=== PATIENT | male | born 1975 | race Caucasian/White ===

== ENCOUNTER 2018-01-09 07:35 | Outpatient (CLI) | payer OTHER ==
--- NOTE | 2018-01-09 09:08 | RAD ---
FOUR VIEWS LUMBAR SPINE: History: Lumbar radiculopathy. M54.16 Date: 01-09-18 Comparison: None available. FINDINGS: AP, lateral, and flexion extension views of the lumbar spine obtained and demonstrate grade 3 anterol isthesis of L5 on S1. This does not significantly change on flexion or extension views. Findings comp atible with marked spondylolysis of the pars intraarticularis of L5. The rest of the lumbar spine dem onstrates no definite abnormalities. A large amount of stool is seen in the colon. IMPRESSION: Grade 3 anterolisthesis of L5 on S1. POS: [facility]
--- NOTE | 2018-01-09 09:36 | MRI ---
MRI LUMBAR SPINE WITHOUT CONTRAST: Technique: Multiplanar, multisequence MRI images were obtained of the lumbar spine following lumbar p rotocol without contrast. Indication: Low back pain. Lumbar radiculopathy of lower extremities. Correlation: Plain films lumbar spine. FINDINGS: Lumbar vertebra through L4 maintain normal height and alignment. Disc spaces are maintained through L 4-5. At L5-S1 there is a grade 1-2 spondylolisthesis with loss of L5-S1 disc space. Mild loss of post erior height of the L5 vertebra. Mild edema within the L4 vertebra. There is a posterior spondylolysi s at L5-S1. L1-2: No significant disc bulge. There is facet arthrosis hypertrophy without significant central can al or foraminal stenosis. L2-3: No significant disc bulge. Mild facet arthrosis and hypertrophy. Posterior epidural fat. Mild c entral canal stenosis. L3-4: Mild diffuse disc bulge. Mild facet arthrosis and hypertrophy. No significant central canal or foraminal stenosis. L4-5: Broad based disc bulge with small central disc protrusion. Facet and ligamentous hypertrophy. M ild central canal stenosis and mild bilateral foraminal stenosis. L5-S1: Spondylolisthesis with posterior spondylosis and loss of disc space as described above. Mild d isc bulge. Prominent facet and ligamentous hypertrophy. Severe central canal stenosis and severe bila teral foraminal stenosis. IMPRESSION: Abnormalities at L4-5 and L5-S1 as described above. POS: [facility] [place]
== END 2018-01-09 07:36 | disposition home or self-care (01) ==
LOC: TBSIIMAG 07:35
PROVIDERS: ATTEND Neurological Surgery
DX: M51.16 Intervertebral disc disorders with radiculopathy, lumbar region (principal); M43.17 Spondylolisthesis, lumbosacral region; M48.061 Spinal stenosis, lumbar region without neurogenic claudication; M99.83 Other biomechanical lesions of lumbar region; M47.897 Other spondylosis, lumbosacral region; M48.07 Spinal stenosis, lumbosacral region; M99.84 Other biomechanical lesions of sacral region
CPT/HCPCS: 72110; 72148

== ENCOUNTER 2018-03-04 06:49 | Observation (INO) | payer OTHER ==
[2018-03-04] MEDS ORDERED: CEFAZOLIN 2 GM/50 ML BAG ONE (07:46)
[2018-03-04] MEDS ORDERED: Sodium Chloride 0.9% 10 ML ONE (08:32)
[2018-03-04 08:36] LABS: Hemoglobin 13.1 g/dL (14.0-18.0); Mean Corpuscular HGB CONC 32.7 g/dL (32.0-36.0); Mean Corpuscular Hemoglobin 28.8 pg (27.0-31.0); Mean Corpuscular Volume 87.9 fL (78.0-98.0); Mean Platelet Volume 7.8 fL (7.4-10.4); Platelet Count 276 thou/uL (130-400); RBC Distribution Width 11.7 % (11.5-14.5); Red Blood Cell (RBC) Count 4.56 mill/uL (4.70-6.10)
[2018-03-04] MEDS ORDERED: Fentanyl 100 MCG/2 ML VIAL ONE ×4 (08:37→10:56)
[2018-03-04] MEDS ORDERED: Midazolam HCl 2 mg/2 ml Vial ONE ×2 (08:37→08:43)
[2018-03-04] MEDS ORDERED: Levofloxacin 500 mg/D5W 100 ml Premix Bag ONE (08:43)
[2018-03-04] MEDS ORDERED: Clindamycin/D5W 900 mg/50 ml Premix Bag ONE (08:43)
[2018-03-04 08:55] LABS: Anion Gap 11 mmol/L (10-20); BUN (Urea Nitrogen) 27 mg/dL (8.9-20.6); Calc. Creatinine Clearance 145 mL/min (70-130); Calcium 9.6 mg/dL (7.8-10.44); Carbon Dioxide 24 mmol/L (22-29); Chloride 106 mmol/L (98-107); Estimated GFR-MDRD 89; Glucose 107 mg/dL (70-105); Sodium 137 mmol/L (136-145)
[2018-03-04] MEDS ORDERED: HYDROmorphone 2 MG/ML VIAL ONE (11:02)
[2018-03-04] MEDS ORDERED: Promethazine HCl 25 MG/ML VIAL ONE (11:06)
--- NOTE | 2018-03-04 11:19 | OP ---
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 PROCEDURES PERFORMED: L4-S1 laminectomy, posterolateral arthrodesis, pedicle screw instrumentation, L4-S1, demineralized bone matrix, and local morselized autograft. DESCRIPTION OF PROCEDURE: The patient was brought to the operating room and intubated. He was rolled in a prone position on gel flat chest rolls. An incision was made exposing the L4 through S1, and the level was confirmed by x-ray. We performed complete L5, superior S1, inferior L4 laminectomy was completed, decompressing the L4-L5 and L5-S1. Particular attention was placed to L5 foramina bilaterally, which were severely compressed. After complete decompression, we placed pedicle screws at L4, L5, and S1 bilaterally using lateral fluoroscopic guidance. We used reduction screws at L5 in an attempt to get reduction and distraction using screws and rods. All nuts were then secured and finally tightened. The wound was extensively irrigated and adequate hemostasis was secured. Combination of demineralized bone matrix and local morselized autograft was laid over the lamina and posterolateral surface for the purpose of arthrodesis. Vancomycin powder was applied, and the wound was then closed in anatomic layers. Job ID: [id number] MTDD
--- NOTE | 2018-03-04 12:06 | EKG ---
Test Reason : PREOP Blood Pressure : / mmHG Vent. Rate : 056 BPM Atrial Rate : 056 BPM P-R Int : 194 ms QRS Dur : 094 ms QT Int : 446 ms P-R-T Axes : 050 029 021 degrees QTc Int : 430 ms Sinus bradycardia Otherwise normal ECG No previous ECGs available Confirmed by PRADEEP OSPINA ([id number]) on 03/04/2018 12:05:56 PM Referred By: NEDRA Confirmed By:PRADEEP OPSINA
[2018-03-04 12:28] VITALS: BMI 29.7
[2018-03-04] MEDS ORDERED: Promethazine HCl 25 MG/ML VIAL IM PRN (12:43)
[2018-03-04] MEDS ORDERED: diphenhydrAMINE 25 MG CAP PO PRN (12:43)
[2018-03-04] MEDS ORDERED: Promethazine 25 MG TAB PO PRN (12:43)
[2018-03-04] MEDS ORDERED: HYDROcodone/Acetaminophen 10/325 mg Tablet PO PRN (12:43)
[2018-03-04] MEDS ORDERED: Promethazine HCl 12.5 MG SUPP PR PRN (12:43)
[2018-03-04] MEDS ORDERED: diphenhydrAMINE 50 MG/ML VIAL IVP PRN (12:43)
[2018-03-04] MEDS ORDERED: Milk Of Magnesia 30 ML UDCUP PO PRN (12:43)
[2018-03-04] MEDS ORDERED: Mag-Al 1200 mg/1200 mg/30 ML UDCUP PO PRN (12:43)
[2018-03-04] MEDS ORDERED: Ondansetron PF 4 MG/2 ML Vial IVP PRN (12:45)
[2018-03-04] MEDS: HYDROcodone/Acetaminophen 10/325 mg Tablet PO PRN ×3 (14:09→23:20)
[2018-03-04] MEDS: tiZANidine HCl 4 MG TAB PO PRN (14:15)
[2018-03-04] MEDS: Sodium Chloride 0.9% 1,000 ML IV SCH (14:17)
[2018-03-04] MEDS: Morphine 4 MG/ML VIAL SLOW IVP PRN ×2 (15:43→21:53)
[2018-03-04] MEDS: CEFAZOLIN 2 GM/50 ML-DEXTROSE 2 GM in Premix Bag 1 BAG IVPB SCH ×2 (15:45→23:21)
[2018-03-04] MEDS ORDERED: Tamsulosin HCl 0.4 MG CAP PO SCH ×2 (17:00→21:00)
[2018-03-04] MEDS: Ketorolac Tromethamine 30 MG/ML VIAL IVP SCH ×2 (17:31→23:20)
[2018-03-04] MEDS ORDERED: Dexamethasone 20 MG/5 ML VIAL ONE (20:18)
[2018-03-04] MEDS ORDERED: PHENYLEPHRINE-NS 100 MCG/ML 10 ML SYRINGE ONE (20:18)
[2018-03-04] MEDS ORDERED: PROPOFOL 200 MG/20 ML VIAL ONE (20:18)
[2018-03-04] MEDS ORDERED: Lidocaine 1% PF 5 ML VIAL ONE (20:18)
[2018-03-04] MEDS ORDERED: ePHEDrine/0.9% NaCl/PF SYRINGE 50 mg/10 ml ONE (20:18)
[2018-03-04] MEDS ORDERED: Glycopyrrolate 0.2 MG/ML 5 ML SYRINGE ONE (20:18)
[2018-03-04] MEDS ORDERED: Ondansetron PF 4 MG/2 ML Vial ONE (20:18)
[2018-03-05] MEDS: Sodium Chloride 0.9% 1,000 ML IV SCH (01:33)
[2018-03-05] MEDS: tiZANidine HCl 4 MG TAB PO PRN (02:22)
[2018-03-05] MEDS: HYDROcodone/Acetaminophen 10/325 mg Tablet PO PRN ×2 (03:50→08:06)
[2018-03-05] MEDS: Ketorolac Tromethamine 30 MG/ML VIAL IVP SCH (05:50)
--- NOTE | 2018-03-05 08:39 | DIS ---
DATE OF ADMISSION: 03/04/2018 DATE OF DISCHARGE: HOSPITAL COURSE: The patient is a 43-year-old male, status post L4-S1 decompression and fusion for L5-S1 spondylolisthesis. Following surgery, he was admitted to the [facility] where his pain was well controlled with p.o. medications. He was tolerating regular diet and ambulating throughout the department. The patient did have some urinary retention initially overnight, which required treatment with p.o. Flomax as well as p.r.n. straight cath x2. This improved overnight. The patient is now voiding easily on his own with a postvoid bladder scan of only 30 mL. On visiting the patient at bedside this morning. He is awake, alert, in no acute distress. He has free active range of motion of all extremities. No focal motor weakness. His dressing is dry. We will plan to dismiss the patient home. I discussed home care precautions. We will follow up with the patient in 2 weeks. He has been provided with scripts for hydrocodone, Zanaflex, and Keflex. Job ID: [id number]
[2018-03-05 08:47] VITALS: BP 124/69; TEMP 99.1
[2018-03-05] MEDS ORDERED: Tamsulosin HCl 0.4 MG CAP PO SCH (21:00)
== END 2018-03-05 10:10 | disposition home or self-care (01) ==
LOC: SDC 06:49 → SURG A 07:30 → EDSTATUS 16:03
PROVIDERS: ADMIT Neurological Surgery; ATTEND Neurological Surgery
PROC: 0SG3071 Fusion of Lumbosacral Joint with Autologous Tissue Substitute, Posterior Approach, Posterior Column, Open Approach (ICD-10-PCS; principal; 2018-03-05)
DX: M43.17 Spondylolisthesis, lumbosacral region (principal); F90.9 Attention-deficit hyperactivity disorder, unspecified type; Z88.0 Allergy status to penicillin; Z88.5 Allergy status to narcotic agent; Z79.899 Other long term (current) drug therapy
CPT/HCPCS: 76001; 80048; 85027; 93005; 93010; 96361; 96365; 96366; 96374; 96375; 96376; C1713; C1768; G0378; G8978-GP-CL; G8979-GP-CJ; J1100; J1170; J1885; J1956; J2001; J2250; J2270; J2405; J2550; J2704; J3010; J3370; J3490

== ENCOUNTER 2018-03-21 15:42 | Outpatient (CLI) | payer BC ==
--- NOTE | 2018-03-21 17:15 | RAD ---
LUMBAR SPINE TWO VIEWS: 03/21/2018 HISTORY: Spondylolisthesis at the L5-S1 level. COMPARISON: 01/09/2018 FINDINGS: There have been interval post surgical changes compared to the prior study with posterior fusion at t he L4-L5 and L5-S1 levels with bipedicular screws and interconnecting rods transfixing this level. G rade 2 to 3 anterolisthesis of L5 on S1 is again seen, and remaining vertebral body heights and inter vertebral disk spaces are within normal limits. There is severe narrowing of the L5-S1 intervertebra l disk space. No other interval change. IMPRESSION: 1. Interval post surgical changes, lower lumbar spine, with posterior fusion of the L4-L5 and L5-S1 levels. 2. Stable grade 2 to 3 anterolisthesis of L5 on S1. POS: [facility]
== END 2018-03-21 15:43 | disposition home or self-care (01) ==
LOC: TBSIIMAG 15:42
PROVIDERS: ATTEND Neurological Surgery
DX: M43.17 Spondylolisthesis, lumbosacral region (principal); Z98.1 Arthrodesis status
CPT/HCPCS: 72100

== ENCOUNTER 2018-05-02 13:56 | Outpatient (CLI) | payer BC ==
--- NOTE | 2018-05-02 16:26 | RAD ---
TWO VIEWS OF LUMBAR SPINE: DATE: 05/02/2018. HISTORY: Lumbar disk degeneration. Followup postsurgical changes. COMPARISON: 03/21/2018. FINDINGS: Postsurgical changes related to posterior fusion are again seen with bipedicular screws and posterior rods again transfixing the L4-5 and L5-S1 levels. Grade II-III anterolisthesis of L5 on S1 is again seen and alignment is unchanged. The vertebral body heights are within normal limits. No additiona l level of subluxation is seen and there is no evidence of a fracture. Laminectomy defect at the lum bosacral junction is present. IMPRESSION: Stable postsurgical changes related to posterior fusion of L4 through S1 level with stable grade II t o III anterolisthesis of L5 on S1. POS: [facility]
== END 2018-05-02 13:57 | disposition home or self-care (01) ==
LOC: TBSIIMAG 13:56
PROVIDERS: ATTEND Neurological Surgery
DX: M51.36 Other intervertebral disc degeneration, lumbar region (principal); M43.17 Spondylolisthesis, lumbosacral region; Z98.1 Arthrodesis status
CPT/HCPCS: 72100